=== PATIENT | male | born 1965 | race Caucasian/White ===

== ENCOUNTER 2017-07-24 08:55 | Emergency (ER) | payer OTHER ==
[~2017-07-24] VITALS: Ht 182.9 cm; Wt 109.0 kg
[2017-07-24] MEDS ORDERED: MORPHINE SULFATE 4 MG/ML CPJ (NOT FOR IM USE) IV STA (09:42)
[2017-07-24] MEDS ORDERED: SODIUM CHLORIDE 0.9% 1,000 ML IV ONE (09:42)
[2017-07-24] MEDS ORDERED: ONDANSETRON HCL 4MG/2ML VIAL IV STA (09:42)
[2017-07-24 10:04] LABS: BASOPHILS % 1.2 % (0.0-2.0); EOSINOPHILS % 1.5 % (0.0-5.0); HEMATOCRIT. 41.7 % (42.0-52.0); HEMOGLOBIN. 14.4 g/dL (14.0-18.0); LYMPHOCYTES % 29.8 % (20.0-50.0); MEAN CORPUSCULAR HEMOGLOBIN 32.1 pg (28.0-32.0); MEAN CORPUSCULAR VOLUME 93.1 fL (80.0-94.0); MEAN PLATELET VOLUME 8.2 fl (7.4-10.4); MONOCYTES % 8.6 % (2.0-8.0); NEUTROPHILS % 58.9 % (40.0-76.0); PLATELET 112 x1000/uL (130-400); RED BLOOD CELL COUNT 4.48 mill/uL (4.7-6.1); RED CELL DISTRIBUTION WIDTH 14.9 % (11.6-14.6)
[2017-07-24 10:09] LABS: INR 1.3; PROTHROMBIN TIME 13.7 sec (9.4-11.6)
[2017-07-24 10:14] LABS: CARBON DIOXIDE 25 mEq/L (21-32); CHLORIDE 103 mEq/L (98-107)
[2017-07-24 12:32] LABS: CLARITY URINE CLEAR (CLEAR); COLOR URINE ORANGE (YELLOW); GLUCOSE URINE NEGATIVE (NEGATIVE); KETONES URINE TRACE (NEGATIVE); LEUKOCYTE ESTERASE URINE TRACE (NEGATIVE); NITRITE URINE NEGATIVE (NEGATIVE); OCCULT BLOOD URINE 1+ (NEGATIVE); PH URINE 5.5 (4.5-8.0); PROTEIN URINE 1+ (NEGATIVE); SPECIFIC GRAVITY URINE 1.025 (1.005-1.030)
[2017-07-24 15:00] VITALS: BP 134/86
== END 2017-07-24 15:04 | disposition home or self-care (01) ==
LOC: ER 11:18
DX: R10.11 Right upper quadrant pain (principal); R11.2 Nausea with vomiting, unspecified; F17.210 Nicotine dependence, cigarettes, uncomplicated; F15.10 Other stimulant abuse, uncomplicated; Z86.59 Personal history of other mental and behavioral disorders
CPT/HCPCS: 36415; 76705; 80053; 81001; 83690; 85025; 85610; 96361; 96374; 96375; 99285; J2270; J2405; J7030; Z7610

== ENCOUNTER 2017-09-21 04:05 | Emergency (ER) | payer MEDICAID, OTHER ==
[~2017-09-21] VITALS: Ht 177.8 cm; Wt 104.0 kg
[2017-09-21] MEDS ORDERED: SODIUM CHLORIDE 0.9% 1,000 ML IV ONE (04:38)
[2017-09-21] MEDS ORDERED: KETOROLAC 30MG/ML VIAL IV ONE (04:45)
[2017-09-21] MEDS ORDERED: METOCLOPRAMIDE HCL 10MG/2ML VIAL IV ONE (04:45)
[2017-09-21] MEDS ORDERED: MORPHINE SULFATE 4 MG/ML CPJ (NOT FOR IM USE) IV ONE (06:15)
[2017-09-21 09:17] VITALS: BP 100/60
== END 2017-09-21 09:17 | disposition home or self-care (01) ==
LOC: ER 04:05
DX: S09.8XXA Other specified injuries of head, initial encounter (principal); F32.9 Major depressive disorder, single episode, unspecified; R56.9 Unspecified convulsions; F15.10 Other stimulant abuse, uncomplicated; W05.0XXA Fall from non-moving wheelchair, initial encounter; Y93.89 Activity, other specified; Y92.89 Other specified places as the place of occurrence of the external cause; Y99.8 Other external cause status
CPT/HCPCS: 36415; 70450; 96361; 96374; 96375; 99285; G0482; J2270; J2765; J7030; X7700; Z7610; J1885

== ENCOUNTER 2017-09-22 10:18 | Emergency (ER) | payer MEDICAID ==
[~2017-09-22] VITALS: Ht 177.8 cm; Wt 92.0 kg
[2017-09-22] MEDS ORDERED: ONDANSETRON HCL 4MG/2ML VIAL IV ONE (11:00)
[2017-09-22] MEDS ORDERED: MORPHINE SULFATE 4 MG/ML CPJ (NOT FOR IM USE) IV ONE (11:00)
[2017-09-22] MEDS ORDERED: SODIUM CHLORIDE 0.9% 1,000 ML IV ONE (11:09)
[2017-09-22 11:47] LABS: BASOPHILS % 1.8 % (0.0-2.0); EOSINOPHILS % 1.8 % (0.0-5.0); HEMATOCRIT. 43.4 % (42.0-52.0); HEMOGLOBIN. 15.2 g/dL (14.0-18.0); LYMPHOCYTES % 34.3 % (20.0-50.0); MEAN CORPUSCULAR HEMOGLOBIN 33.7 pg (28.0-32.0); MEAN CORPUSCULAR VOLUME 96.1 fL (80.0-94.0); MEAN PLATELET VOLUME 8.9 fl (7.4-10.4); MONOCYTES % 5.3 % (2.0-8.0); NEUTROPHILS % 56.8 % (40.0-76.0); PLATELET 115 x1000/uL (130-400); RED BLOOD CELL COUNT 4.51 mill/uL (4.7-6.1); RED CELL DISTRIBUTION WIDTH 14.6 % (11.6-14.6)
[2017-09-22 11:53] LABS: CHLORIDE 103 mEq/L (98-107)
[2017-09-22 12:02] LABS: CARBON DIOXIDE 28 mEq/L (21-32)
[2017-09-22 14:50] VITALS: BP 143/78
== END 2017-09-22 14:54 | disposition home or self-care (01) ==
LOC: ER 10:49
DX: S00.93XA Contusion of unspecified part of head, initial encounter (principal); S10.83XA Contusion of other specified part of neck, initial encounter; R11.2 Nausea with vomiting, unspecified; R04.0 Epistaxis; F32.9 Major depressive disorder, single episode, unspecified; F15.10 Other stimulant abuse, uncomplicated; Y08.89XA Assault by other specified means, initial encounter; Y93.89 Activity, other specified; Y92.89 Other specified places as the place of occurrence of the external cause; Y99.8 Other external cause status
CPT/HCPCS: 36415; 70450; 72125; 80053; 85025; 96361; 96374; 96375; 99285; J2270; J2405; J7030; Z7610